=== PATIENT | male | born 1985 | race Caucasian/White ===

== ENCOUNTER 2020-04-12 10:44 | Emergency (ER) | payer SELFPAY ==
[~2020-04-12] VITALS: Ht 177.8 cm; Wt 108.9 kg
[2020-04-12] MEDS ORDERED: SODIUM CHLORIDE 0.9% 1000ML 1,000 ML IV STA (10:50)
[2020-04-12] MEDS ORDERED: ONDANSETRON HCL INJ 2MG/ML 2ML 2 MG/ML VIAL IV ONE (11:00)
[2020-04-12] MEDS ORDERED: ASPIRIN 81 MG CHEW TAB PO ONE (11:00)
[2020-04-12] MEDS ORDERED: KETOROLAC TROMETHAMINE 30 MG/ML VIAL IV ONE (11:00)
[2020-04-12] MEDS ORDERED: FAMOTIDINE 20 MG/2 ML VIAL IV ONE (11:00)
[2020-04-12] MEDS ORDERED: SODIUM CHLORIDE 0.9% 1000ML 1,000 ML ONE (11:04)
[2020-04-12] MEDS ORDERED: IOPAMIDOL 370 MG/ML 200 ML INFUS..BTL INJ ONE (11:16)
[2020-04-12] MEDS ORDERED: SODIUM CHLORIDE 0.9% 50ML 0 ML ONE (11:16)
--- NOTE | 2020-04-12 11:19 | Emergency Department Note ---
History of Present Illnes History of Present Illness Chief Complaint: Abdominal Complaints History of Present Illness This is a 34 year old male c/o left flank pain for 3 days, nauseated, feels like a kidney stone that he had before . 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 Any updates have been documented here. Past Medical History Recent Fever: No Clinical Suspicion of Infectio: No New/Unexplained Change in Ment: No Past Medical History: Kidney Stones Past Surgical History: None Social History Smoking Cessation: Never Smoker Counseling Performed: No Alcohol Use: Occasional Any Illegal Drug Use: No TB Exposure/Symptoms: No Physically hurt or threatened: No Family History Family history of heart diseas: No Other Any Pre-Existing Lines (PICC,: No Review of Systems Review of Systems Gastrointestinal: Reports as per HPI Genitourinary: Reports as per HPI Physical Exam Related Data Allergies: Coded Allergies: No Known Allergies (Unverified , 04/12/20) Physical Exam CONSTITUTIONAL Constitutional: Present well-developed, Present well-nourished HENT HENT: Present normocephalic, Present atraumatic, Present oropharynx clear/moist, Present nose normal HENT L/R: Present left ext ear normal, Present right ext ear normal EYES Eyes: Reports PERRL, Reports conjunctivae normal NECK Neck: Present ROM normal PULMONARY Pulmonary: Present effort normal, Present breath sounds normal CARDIOVASCULAR Cardiovascular: Present regular rhythm, Present heart sounds normal, Present capillary refill normal, Present normal rate GASTROINTESTINAL Abdominal: Present soft, Present nontender, Present bowel sounds normal, Present tender (right flank) GENITOURINARY Genitourinary: Present exam deferred SKIN Skin: Present warm, Present dry MUSCULOSKELETAL Musculoskeletal: Present ROM normal NEUROLOGICAL Neurological: Present alert, Present oriented x 3, Present no gross motor or sensory deficits PSYCHOLOGICAL Psychological: Present mood/affect normal, Present judgement normal Results Laboratory Lab results reviewed: Yes Laboratory comments hematuria, cr 1.5 Imaging Imaging results reviewed: Yes Impressions 4 mm stone right UVJ Assessment & Plan Medical Decision Making MDM stone vs appendix Reassessment Reassessment time: 11:59 Reassessment doing better Assessment & Plan Final Impression: (1) Acute right flank pain (2) Hydronephrosis (3) Kidney stone on right side Depart Disposition: HOME, SELF-alf Meds Active Scripts Ibuprofen (IBUPROFEN IB) 200 Mg Tablet, 3 TAB PO Q6H PRN for pain, #60 Prov:PRAVEENA MCKEON MD 04/12/20 Tamsulosin Hcl* (FLOMAX*) 0.4 Mg Cap, 0.4 MG PO DAILY, #15 CAP Prov:PRAVEENA MCKEON MD 04/12/20 Ondansetron Hcl* (ZOFRAN*) 4 Mg Tablet, 4 MG SL Q6H PRN for NAUSEA, #14 MG 0 Refills Prov:PRAVEENA MCKEON MD 04/12/20 Acetaminophen/Codeine* (TYLENOL # 3*) 1 Ea Tab, 1 TAB PO Q4HR PRN for pain or cough, #45 Prov:PRAVEENA MCKEON MD 04/12/20 Medications in the ED Aspirin 325 mg ONCE ONCE PO ; Start 04/12/20 at 11:00; Stop 04/12/20 at 10:53; Status DC Famotidine 20 mg ONCE ONCE IV ; Start 04/12/20 at 11:00; Stop 04/12/20 at 11:01; Status UNV Ketorolac Tromethamine 30 mg ONCE ONCE IV ; Start 04/12/20 at 11:00; Stop 04/12/20 at 11:01; Status UNV Ondansetron HCl 4 mg ONCE ONCE IV ; Start 04/12/20 at 11:00; Stop 04/12/20 at 11:01; Status UNV Sodium Chloride 1,000 ml @ 0 mls/hr Q0M STAT IV ; Start 04/12/20 at 10:50; Stop 04/12/20 at 10:51 Sodium Chloride 1,000 ml @ ud STK-MED ONCE .ROUTE ; Start 04/12/20 at 11:04; Stop 04/12/20 at 10:57; Status DC Physician Attestation Provider Attestation taking PO well, pain control, can be safely discharged and f/u PRAVEENA MCKEON MD Apr 12, 2020 11:08
--- NOTE | 2020-04-12 11:53 | Diagnostic Imaging Report ---
EXAM: CT Abdomen and Pelvis WITHOUT intravenous contrast INDICATION: ^right flank pain ^20200412 ^1136. COMPARISON: None. TECHNIQUE: Abdomen and pelvis were scanned utilizing a multidetector helical scanner from the lung base to the pubic symphysis without administration of IV contrast. Coronal and sagittal reformations were obtained. Routine technique was performed. IV CONTRAST: None ORAL CONTRAST: None COMPLICATIONS: None RADIATION DOSE: Total DLP: 836 mGy*cm Dose modulation, iterative reconstruction, and/or weight based adjustment of the mA/kV was utilized to reduce the radiation dose to as low as reasonably achievable. FINDINGS: LOWER THORAX: Normal. HEPATOBILIARY: Liver is diffusely hypoattenuating. No focal hepatic lesions. No biliary ductal dilatation. The gallbladder appears unremarkable. SPLEEN: Spleen measures up to 13.6 cm, mildly enlarged. PANCREAS: No focal masses or ductal dilatation. ADRENALS: No adrenal nodules. KIDNEYS/URETERS: Multiple bilateral renal calculi are visualized. There is moderate right hydroureteronephrosis. Right ureter is dilated with mild surrounding inflammatory changes. There is a 3 to 4 mm calculus within the distal right ureter at the level of the pelvic sidewall. No stone is identified level of the ureterovesicular junction. Left ureter is not dilated. There are 3 distinct nonobstructing calculi within the upper pole the right kidney measuring from 2 to 4 mm. There are 2 distinct renal calculi at the inferior pole the right kidney measuring from 1 to 3 mm. There are 2 adjacent left interpolar 5 measuring 2 and 4 mm. There is a 2 mm calculus at the inferior pole of the left kidney. PELVIC ORGANS/BLADDER: No bladder stone is noted. Urinary bladder is decompressed. Prostate is unremarkable. PERITONEUM / RETROPERITONEUM: No free air or fluid. LYMPH NODES: No lymphadenopathy. VESSELS: Unremarkable. GI TRACT: Limited due to lack of IV and oral contrast. Stomach, multiple small bowel loops and majority of the colon is decompressed limiting evaluation. Negative for bowel obstruction or surrounding inflammatory changes. Normal appendix is noted. BONES AND SOFT TISSUES: No acute osseous abnormality. No suspicious destructive lesion. Soft tissues are unremarkable. IMPRESSION: 1. There is a 4 mm distal right ureteral stone with proximal hydroureteronephrosis. The stone is identified within the ureter and not at the level of the ureterovesicular junction. No other obstructing stone is identified. 2. Multiple bilateral renal calculi as described above measuring from 1 to 4 mm. 3. Hepatic steatosis. 4. Nonspecific mild splenomegaly. Signed by: Seferino Bajwa MD on 04/12/2020 11:50 AM
--- NOTE | 2020-04-12 11:56 | NUR ---
3rd time pt asked to give ua. pt on phone and put up finger as if to say to wait. female at bedside states she will tell him once pt off phone.
[2020-04-12] MEDS ORDERED: IBUPROFEN IB200 MG PO (12:00)
[2020-04-12] MEDS ORDERED: ZOFRAN4 MG SL (12:00)
[2020-04-12] MEDS ORDERED: FLOMAX0.4 MG PO (12:00)
[2020-04-12] MEDS ORDERED: TYLENOL # 31 EA PO (12:00)
--- OUTSIDE RECORDS SUMMARY | 2020-04-12 12:24 | XMS REPORT | Continuity of Care Document ---
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 Allergies, Adverse Reactions, Alerts This patient has no known allergies or adverse reactions. Medications This patient has no known medications. Procedures This patient has no known procedures. Results Test Description Test Time Test Comments Results Result Comments Source CT ABD/PEL WO CONTRAST-HOPD 2020-04-12 11:44:00 [facility] 1985 Sex: [place] [id number] Patient Name: VIRIDIANA BLANDON MR #: [id number] : 1985 Age/Sex: 34/M Req #: [id number] [facility] Physician: Ordered by: PRAVEENA MCKENO MD Report #: [id number] Location: [facility] Room/Bed: Procedure: [id number] HOPD/CT ABD/PEL WO CONTRAST-HOPD Exam Date: 04/12/20 Exam Time: 1136 REPORT STATUS: Signed EXAM: CT Abdomen and Pelvis WITHOUT intravenous contrast INDICATION: right flank pain 20200412. COMPARISON: None. TECHNIQUE: Abdomen and pelvis were scanned utilizing a multidetector helical scanner from the lung base to the pubic symphysis without administration of IV contrast. Coronal and sagittal reformations were obtained. Routine technique was performed. IV CONTRAST: None ORAL CONTRAST: None COMPLICATIONS: None RADIATION DOSE: Total DLP: 836 mGy*cm Dose modulation, iterative reconstruction, and/or weight based adjustment of the mA/kV was utilized to reduce the radiation dose to as low as reasonably achievable. FINDINGS: LOWER THORAX: Normal. HEPATOBILIARY: Liver is diffusely hypoattenuating. No focal hepatic lesions. No biliary ductal dilatation. The gallbladder appears unremarkable. SPLEEN: Spleen measures up to 13.6 cm, mildly enlarged. PANCREAS: No focal masses or ductal dilatation. ADRENALS: No adrenal nodules. KIDNEYS/URETERS: Multiple bilateral renal calculi are visualized. There is moderate right hydroureteronephrosis. Right ureter is dilated with mild surrounding inflammatory changes. There is a 3 to 4 mm calculus within the distal right ureter at the level of the pelvic sidewall. No stone is identified level of the ureterovesicular junction. Left ureter is not dilated. There are 3 distinct nonobstructing calculi within the upper pole the right kidney measuring from 2 to 4 mm. There are 2 distinct renal calculi at the inferior pole the right kidney measuring from 1 to 3 mm. There are 2 adjacent left interpolar 5 measuring 2 and 4 mm. There is a 2 mm calculus at the inferior pole of the left kidney. PELVIC ORGANS/BLADDER: No bladder stone is noted. Urinary bladder is decompressed. Prostate is unremarkable. PERITONEUM / RETROPERITONEUM: No free air or fluid. LYMPH NODES: No lymphadenopathy. VESSELS: Unremarkable. GI TRACT: Limited due to lack of IV and oral contrast. Stomach, multiple small bowel loops and majority of the colon is decompressed limiting evaluation. Negative for bowel obstruction or surrounding inflammatory changes. Normal appendix is noted. BONES AND SOFT TISSUES: No acute osseous abnormality. No suspicious destructive lesion. Soft tissues are unremarkable. IMPRESSION: 1. There is a 4 mm distal right ureteral stone with proximal hydroureteronephrosis. The stone is identified within the ureter and not at the level of the ureterovesicular junction. No other obstructing stone is identified. 2. Multiple bilateral renal calculi as described above measuring from 1 to 4 mm. 3. Hepatic steatosis. 4. Nonspecific mild splenomegaly. Signed by: Cesia Bajwa MD on 04/12/2020 11:50 AM Dictated By: CESIA BAJWA MD 1150 Transcribed By: MCKENZIE on 04/12/20 1150 COPY TO: PRAVEENA MCKEON MD
== END 2020-04-12 12:51 | disposition home or self-care (01) ==
LOC: FSED 11:07
DX: M54.5 Low back pain (principal); N13.2 Hydronephrosis with renal and ureteral calculous obstruction
CPT/HCPCS: 74176; 80053; 81003; 85025; 99284; J1885; J2405; J7030; Q9967

== ENCOUNTER 2022-09-08 19:52 | Emergency (ER) | payer SELFPAY ==
[~2022-09-08] VITALS: Ht 177.8 cm; Wt 114.8 kg
[~2022-09-08 19:52] MED LIST: FLOMAX0.4 MG PO; IBUPROFEN IB200 MG PO; TYLENOL # 31 EA PO; ZOFRAN4 MG SL
[2022-09-08] MEDS ORDERED: ONDANSETRON HCL INJ 2MG/ML 2ML 2 MG/ML VIAL ONE (20:12)
[2022-09-08] MEDS ORDERED: SODIUM CHLORIDE 0.9% 1000ML 1,000 ML ONE (20:13)
[2022-09-08] MEDS ORDERED: KETOROLAC TROMETHAMINE 30 MG/ML VIAL ONE (20:13)
[2022-09-08] MEDS ORDERED: KETOROLAC TROMETHAMINE 30 MG/ML VIAL IV STA (20:21)
[2022-09-08] MEDS ORDERED: ONDANSETRON HCL INJ 2MG/ML 2ML 2 MG/ML VIAL IV STA (20:22)
[2022-09-08] MEDS ORDERED: SODIUM CHLORIDE 0.9% 1000ML 1,000 ML IV ONE (20:30)
[2022-09-08] MEDS ORDERED: LEVOFLOXACIN 500MG/D5W 100ML 100 ML IV ONE (21:00)
[2022-09-08] MEDS ORDERED: BACTRIM DS TAB1 EACH PO (21:15)
[2022-09-08] MEDS ORDERED: FLOMAX0.4 MG PO (21:16)
[2022-09-08] MEDS ORDERED: KETOROLAC TROME10 MG PO (21:17)
[2022-09-08 21:45] VITALS: BP 136/90
== END 2022-09-08 21:45 | disposition home or self-care (01) ==
LOC: FSED 20:12
DX: R10.30 Lower abdominal pain, unspecified (principal); N13.2 Hydronephrosis with renal and ureteral calculous obstruction; I10 Essential (primary) hypertension; E11.65 Type 2 diabetes mellitus with hyperglycemia
CPT/HCPCS: 74176; 80048; 80076; 81003; 85025; 96374; 96376; 99284; J1885; J1956; J2405; J7030